=== PATIENT | female | born 2005 | race African-American/Black ===

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

== ENCOUNTER 2024-03-10 08:14 | Emergency (ER) | payer OTHER ==
[2024-03-10] MEDS: ACETAMINOPHEN TAB 325 MG TAB PO STA (08:53)
--- NOTE | 2024-03-10 08:54 | ED ---
General Adult HPI - General Chief complaint: Arrhythmia/Palpitations Stated complaint: High HrtRate Time Seen by Provider: 03/10/24 08:20 Source: patient, RN notes reviewed, old records reviewed Mode of arrival: ambulatory Limitations: no limitations - History of Present Illness Initial comments: 18-year-old female presents for evaluation of palpitations. Patient states that she has had a racing heart and her watch has indicated that her heart rate has been elevated. This has been an ongoing issue in which she is following with her primary care. She also reports that she has been sick for the past several days with upper respiratory symptoms, cough, fever and myalgia. No chest pain. No dyspnea. No lower extremity swelling. She has history of anemia but states that her last hemoglobin was normal. - Related Data Home Medications Medication Instructions Recorded Confirmed Levonorgestrel-Ethinyl Estradiol 1 tab PO DAILY 06/08/23 10/27/23 0.1-20mg-Mcg Ascorbic Acid [Vitamin C chew] 500 mg PO DAILY 10/27/23 10/27/23 Ferrous Sulfate [Feosol] 325 mg PO DAILY 10/27/23 10/27/23 Previous Rx's Medication Instructions Recorded Famotidine [Pepcid] 20 mg PO DAILY 5 Days #5 tablet 10/27/23 Allergies Allergy/AdvReac Type Severity Reaction Status Date / Time sodium ferric gluconate Allergy Severe Rapid Verified 03/10/24 08:17 complex Heart Rate [From Ferrlecit] sucrose [From Ferrlecit] Allergy Severe Rapid Verified 03/10/24 08:17 Heart Rate Review of Systems ROS Statement: Those systems with pertinent positive or pertinent negative responses have been documented in the HPI. ROS Other: All systems not noted in ROS Statement are negative. Past Medical History Past Medical History: Asthma, No Reported History Additional Past Medical History / Comment(s): pt has had workups for recurring headaches. anemia History of Any Multi-Drug Resistant Organisms: None Reported Past Surgical History: No Surgical Hx Reported Past Psychological History: No Psychological Hx Reported Smoking Status: Never smoker Past Alcohol Use History: None Reported Past Drug Use History: None Reported General Exam Limitations: no limitations General appearance: alert, in no apparent distress Head exam: Present: atraumatic, normocephalic Eye exam: Present: normal appearance, PERRL ENT exam: Present: mucous membranes dry Neck exam: Present: normal inspection. Absent: tenderness, meningismus Respiratory exam: Present: normal lung sounds bilaterally. Absent: respiratory distress Cardiovascular Exam: Present: normal rhythm, tachycardia GI/Abdominal exam: Present: soft. Absent: distended, tenderness, guarding Extremities exam: Present: normal inspection, normal capillary refill. 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 sent in by a medical professional or institution (, PA, HONEYCOMB DECAPPER, urgent care, hospital, or longterm...) When possible be specific @ -No Did you speak to anyone other than the patient for history (EMS, parent, family, police, friend...)? What history was obtained from this source @ -No Did you review nursing and triage notes (agree or disagree)? Why? @ -I reviewed and agree with nursing and triage notes Were old charts reviewed (outside hosp., previous admission, EMS record, old EKG, old radiological studies, urgent care reports/EKG's, longterm records)? Report findings @ -No old charts were reviewed Differential Palpitations Ventricular arrhythmias, atrial arrhythmias, myocardial infarction, anemia, thyrotoxicosis, electrolyte imbalance, hypokalemia, pulmonary embolism, pulmonary disease, drugs, alcohol, anxiety, stress.... This is not meant to be an all-inclusive list. EKG interpreted by me (3pts min.). @ -[Sinus tachycardia rate of 120, DC interval 129, QRS duration 77, QTc [address] segment elevation. X-rays interpreted by me (1pt min.). @ -None done CT interpreted by me (1pt min.). @ -None done U/S interpreted by me (1pt. min.). @ -None done What testing was considered but not performed or refused? (CT, X-rays, U/S, labs)? Why? @ -None What meds were considered but not given or refused? Why? @ -None Did you discuss the management of the patient with other professionals (pro fessionals i.e. , PA, HONEYCOMB DECAPPER, lab, RT, psych nurse, social welfare clerk, professor of surgery, teacher, commercial account officer, pillowcase cutter)? Give summary @ -No Was smoking cessation discussed for >3mins.? @ -No Was critical care preformed (if so, how long)? @ -No Were there social determinants of health that impacted care today? How? (Homelessness, low income, unemployed, alcoholism, drug addiction, transportation, low edu. Level, literacy, decrease access to med. care, care home, rehab)? @ -No Was there de-escalation of care discussed even if they declined (Discuss DNR or withdrawal of care, Hospice)? DNR status @ -No What co-morbidities impacted this encounter? (DM, HTN, Smoking, COPD, CAD, Cancer, CVA, ARF, Chemo, Hep., AIDS, mental health diagnosis, sleep apnea, morbid obesity)? @ -None Was patient admitted / discharged? Hospital course, mention meds given and route, prescriptions, significant lab abnormalities, going to OR and other pertinent info. @ -[18-year-old female with cough cold symptoms and racing heart sensation. Patient is tachycardic upon arrival, EKG is at 120. She is otherwise stable. S he has a fever and upper respiratory condition which is testing positive for influenza A. Tachycardia likely a result of fever and viral illness. Patient is not anemic. She has otherwise normal labs. Heart rate improved with Tylenol and IV fluids. Patient instructed on fever control and hydration. Stable for discharge. Undiagnosed new problem with uncertain prognosis? @ -No Drug Therapy requiring intensive monitoring for toxicity (Heparin, Nitro, Insulin, Cardizem)? @ -No Were any procedures done? @ -No Diagnosis/symptom? @ -[Influenza A Acute, or Chronic, or Acute on Chronic? @Acute Uncomplicated (without systemic symptoms) or Complicated (systemic symptoms)? @ -Default Side effects of treatment? @ -No Exacerbation, Progression, or Severe Exacerbation? @ -No Poses a threat to life or bodily function? How? (Chest pain, USA, VT, pneumonia, PE, COPD, DKA, ARF, appy, cholecystitis, CVA, Diverticulitis, Homicidal, Suicidal, threat to staff... and all critical care pts) @ -No - Lab Data Result diagrams: 03/10/24 09:00 03/10/24 09:00 Lab Results 03/10/24 03/10/24 03/10/24 Range/Units 09:00 09:00 09:00 WBC 4.9 (4.0-11.0) k/uL RBC 4.38 (3.80-5.40) m/uL Hgb 12.9 (11.4-16.0) gm/dL Hct 39.6 (34.0-46.0) % MCV 90.4 (80.0-100.0) fL MCH 29.5 (25.0-35.0) pg MCHC 32.7 (31.0-37.0) g/dL RDW 12.9 (11.5-15.5) % Plt Count 187 (150-450) k/uL MPV 7.6 Neutrophils % 83 % Lymphocytes % 10 % Monocytes % 6 % Eosinophils % 0 % Basophils % 0 % Neutrophils # 4.0 (1.3-7.7) k/uL Lymphocytes # 0.5 L (1.0-4.8) k/uL Monocytes # 0.3 (0-1.0) k/uL Eosinophils # 0.0 (0-0.7) k/uL Basophils # 0.0 (0-0.2) k/uL Sodium 140 (137-145) mmol/L Potassium 4.3 (3.5-5.1) mmol/L Chloride 105 (98-107) mmol/L Carbon Dioxide 21 L (22-30) mmol/L Anion Gap 14 mmol/L BUN 8 (7-17) mg/dL Creatinine 0.89 (0.52-1.04) mg/dL Est GFR (CKD-EPI)AfAm >90 (>60 ml/min/1.73 sqM) Est GFR (CKD-EPI)NonAf >90 (>60 ml/min/1.73 sqM) Glucose 90 (74-99) mg/dL Calcium 9.5 (8.4-10.2) mg/dL Total Bilirubin 0.5 (0.2-1.3) mg/dL AST 22 (14-36) U/L ALT 16 (4-34) U/L Alkaline Phosphatase 68 (38-126) U/L Total Protein 8.1 (6.3-8.2) g/dL Albumin 4.9 (3.5-5.0) g/dL Influenza Type A (PCR) Detected A (Not Detectd) Influenza Type B (PCR) Not Detected (Not Detectd) RSV (PCR) Not Detected (Not Detectd) SARS-CoV-2 (PCR) Not Detected (Not Detectd) Disposition Clinical Impression: Palpitations, Influenza A Disposition: HOME SELF-CARE Condition: Fair Instructions (If sedation given, give patient instructions): Heart Palpitations (ED), Influenza (ED) Is patient prescribed a controlled substance at d/c from ED?: No Referrals: None,Stated [REFERRING] - 1-2 days Time of Disposition: 10:10
[2024-03-10] MEDS: SODIUM CHLORIDE 0.9% 1,000 ML IV ONE (09:02)
[2024-03-10 09:17] LABS: Basophils % (A) 0 %; Eosinophils % (A) 0 %; HCT 39.6 % (34.0-46.0); HGB 12.9 gm/dL (11.4-16.0); Lymphocytes # (A) 0.5 k/uL (1.0-4.8); Lymphocytes % (A) 10 %; MCH 29.5 pg (25.0-35.0); MCHC 32.7 g/dL (31.0-37.0); MCV 90.4 fL (80.0-100.0); Mean Platelet Volume 7.6; Monocytes # (A) 0.3 k/uL (0-1.0); Monocytes % (A) 6 %; Neutrophils % (A) 83 %; Platelet Count 187 k/uL (150-450); RBC 4.38 m/uL (3.80-5.40); RDW 12.9 % (11.5-15.5); WBC 4.9 k/uL (4.0-11.0)
[2024-03-10 09:49] LABS: ALT 16 U/L (4-34); AST 22 U/L (14-36); African American GFR (CKD) >90 (>60 ml/min/1.73 sqM); Albumin 4.9 g/dL (3.5-5.0); Alkaline Phosphatase 68 U/L (38-126); Anion Gap 14 mmol/L; Blood Urea Nitrogen 8 mg/dL (7-17); Calcium 9.5 mg/dL (8.4-10.2); Carbon Dioxide 21 mmol/L (22-30); Chloride 105 mmol/L (98-107); Glucose 90 mg/dL (74-99); Non-African American GFR(CKD) >90 (>60 ml/min/1.73 sqM); Potassium 4.3 mmol/L (3.5-5.1); Sodium 140 mmol/L (137-145); Total Bilirubin 0.5 mg/dL (0.2-1.3); Total Protein 8.1 g/dL (6.3-8.2)
[2024-03-10 09:53] LABS: Influenza A Detected (Not Detectd); Influenza B Not Detected (Not Detectd); RSV Not Detected (Not Detectd)
[2024-03-10] MEDS: ONDANSETRON 4 MG/2 ML VIAL IVP STA (10:00)
[2024-03-10 10:11] VITALS: BP 104/63; PULSE 110; RESP 17; TEMP 99.9
[2024-03-10 10:38] LABS: Appearance,Urine Clear (Clear); Bilirubin,Urine Negative (Negative); Blood,Urine Negative (Negative); Color,Urine Yellow; Glucose,Urine (UA) Negative (Negative); Ketones,Urine Negative (Negative); Leukocyte Esterase,Urine Negative (Negative); Nitrite,Urine Negative (Negative); PH, Urine 6.5 (5.0-8.0); Protein,Urine Trace (Negative); Specific Gravity,Urine 1.032 (1.001-1.035)
== END 2024-03-10 10:23 | disposition home or self-care (01) ==
LOC: EC 08:14
DX: R00.2 Palpitations (principal); J10.1 Influenza due to other identified influenza virus with other respiratory manifestations; Z88.8 Allergy status to other drugs, medicaments and biological substances; Z11.52 Encounter for screening for COVID-19
CPT/HCPCS: 36415; 93005; 80053; 85025; 81003; 81025; 87636; 99285; 96374; 96361; J2405

== ENCOUNTER 2024-06-24 15:29 | Emergency (ER) | payer OTHER ==
[2024-06-24 16:07] LABS: Glucose,Whole Blood 108 mg/dL (70-110)
[2024-06-24] MEDS: ONDANSETRON 4 MG/2 ML VIAL IVP STA (16:34)
[2024-06-24] MEDS: FAMOTIDINE 20 MG/2 ML VIAL IV STA (16:35)
[2024-06-24] MEDS: diphenhydrAMINE 50 MG/ML 1 ML VIAL IVP STA (16:35)
--- NOTE | 2024-06-24 16:37 | ED ---
Allergic Reaction HPI - General Chief complaint: Allergic Reaction Stated complaint: rash Time Seen by Provider: 06/24/24 16:02 Source: patient Mode of arrival: ambulatory Limitations: no limitations - History of Present Illness Initial Comments: 18-year-old female who presents to the emergency department after an allergic reaction. Patient was receiving iron infusion. She was pretreated with steroids and Benadryl she has had a previous reaction. Patient states she was able to make it through the infusion to go home. She has started having a rash on her upper extremities, swollen bilateral feet as well as vomiting. This prompted patient to come back to the emergency department she was concern for allergic reaction. Patient is not allergic to anything else. She does feel mildly short of breath. No concern for . No other alleviating, precipitating or modifying factors - Related Data Home Medications Medication Instructions Recorded Confirmed Levonorgestrel-Ethinyl Estradiol 1 tab PO DAILY 06/08/23 06/24/24 0.1-20mg-Mcg Ascorbic Acid [Vitamin C chew] 500 mg PO DAILY 10/27/23 06/24/24 Amoxicillin 250 mg PO BID 06/24/24 06/24/24 Multivit/Iron Sulf/Folic Acid 1 tab PO DAILY 06/24/24 06/24/24 [Multivitamin with Iron] predniSONE 5 mg PO BID 06/24/24 06/24/24 Previous Rx's Medication Instructions Recorded Famotidine [Pepcid] 20 mg PO BID #28 tablet 06/24/24 diphenhydrAMINE [Benadryl] 25 - 50 mg PO Q6HR 3 Days #25 06/24/24 capsule predniSONE [Deltasone] 20 mg PO BID #6 tab 06/24/24 Allergies Allergy/AdvReac Type Severity Reaction Status Date / Time sodium ferric gluconate Allergy Severe Rapid Verified 06/24/24 15:36 complex Heart Rate [From Ferrlecit] sucrose [From Ferrlecit] Allergy Severe Rapid Verified 06/24/24 15:36 Heart Rate Review of Systems ROS Statement: Those systems with pertinent positive or pertinent negative responses have been documented in the HPI. ROS Other: All systems not noted in ROS Statement are negative. Past Medical History Past Medical History: Asthma, Blood Disorder Additional Past Medical History / Comment(s): pt has had workups for recurring headaches. anemia History of Any Multi-Drug Resistant Organisms: None Reported Past Surgical History: No Surgical Hx Reported Past Psychological History: No Psychological Hx Reported Smoking Status: Never smoker General Exam Limitations: no limitations General appearance: alert, in no apparent distress Head exam: Present: atraumatic, normocephalic, normal inspection Eye exam: Present: normal appearance, PERRL, EOMI. Absent: scleral icterus, conjunctival injection, periorbital swelling ENT exam: Present: normal exam, mucous membranes moist Neck exam: Present: normal inspection. Absent: tenderness, meningismus, lymphadenopathy Respiratory exam: Present: normal lung sounds bilaterally. Absent: respiratory distress, wheezes, rales, rhonchi, stridor Cardiovascular Exam: Present: regular rate, normal rhythm, normal heart sounds. Absent: systolic murmur, diastolic murmur, rubs, gallop, clicks GI/Abdominal exam: Present: soft, normal bowel sounds. Absent: distended, tenderness, guarding, rebound, rigid Extremities exam: Present: full ROM, normal capillary refill, pedal edema (b/l feet). Absent: tenderness, joint swelling, calf tenderness Back exam: Present: normal inspection Neurological exam: Present: alert, oriented X3, CN II-XII intact Psychiatric exam: Present: normal affect, normal mood Skin exam: Present: warm, dry, intact, normal color. Absent: rash Course Vital Signs 06/24/24 06/24/24 06/24/24 15:30 15:58 16:01 Temperature 98.3 F Pulse Rate 154 H 112 H Respiratory 18 20 20 Rate Blood Pressure 104/73 104/35 O2 Sat by Pulse 100 96 Oximetry 06/24/24 06/24/24 06/24/24 17:35 18:00 18:45 Temperature 98.6 F Pulse Rate 85 86 81 Respiratory 16 16 16 Rate Blood Pressure 130/60 118/60 100/77 O2 Sat by Pulse 98 98 100 Oximetry Medical Decision Making - Medical Decision Making Was pt. sent in by a medical professional or institution (, PA, PRINCIPAL BIOINFORMATICS SPECIALIST, urgent care, hospital, or group home...) When possible be specific @ -No Did you speak to anyone other than the patient for history (EMS, parent, family, police, friend...)? What history was obtained from this source @ spoke with mother for history Did you review nursing and triage notes (agree or disagree)? Why? @ -I reviewed and agree with nursing and triage notes Were old charts reviewed (outside hosp., previous admission, EMS record, old EKG, old radiological studies, urgent care reports/EKG's, group home records)? Report findings @ -I reviewed the MAR from the infusion center today. States patient was given iron infusion, fluids, steroids and Benadryl Differential Diagnosis (chest pain, altered mental status, abdominal pain women, abdominal pain men, vaginal bleeding, weakness, fever, dyspnea, syncope, headache, dizziness, GI bleed, back pain, seizure, CVA, palpatations, mental health, musculoskeletal)? @ -Allergic reaction, lymphedema EKG interpreted by me (3pts min.). @ -Yes and demonstrates sinus rhythm with a rate of 89. VT interval 120. QRS 84. QTc of 386. No acute ST segment elevations or depressions X-rays interpreted by me (1pt min.). @ -Yes which demonstrates no acute process CT interpreted by me (1pt min.). @ -None done U/S interpreted by me (1pt. min.). @ -None done What testing was considered but not performed or refused? (CT, X-rays, U/S, labs)? Why? @ -None What meds were considered but not given or refused? Why? @ -Additional steroids and fluids were considered however the patient does have peripheral edema Did you discuss the management of the patient with other professionals (professionals i.e. , PA, PRINCIPAL BIOINFORMATICS SPECIALIST, lab, RT, psych nurse, sr. social media & mobile manager, level glass vial filler, teacher, chief commercial officer, pillowcase cutter)? Give summary @ -No Was smoking cessation discussed for >3mins.? @ -No Was critical care preformed (if so, how long)? @ -No Were there social determinants of health that impacted care today? How? (Homelessness, low income, unemployed, alcoholism, drug addiction, transportation, low edu. Level, literacy, decrease access to med. care, long-term, rehab)? @ -No Was there de-escalation of care discussed even if they declined (Discuss DNR or withdrawal of care, Hospice)? DNR status @ -No What co-morbidities impacted this encounter? (DM, HTN, Smoking, COPD, CAD, Cancer, CVA, ARF, Chemo, Hep., AIDS, mental health diagnosis, sleep apnea, morbid obesity)? @ -None Was patient admitted / discharged? Hospital course, mention meds given and route, prescriptions, significant lab abnormalities, going to OR and other pertinent info. @ -Discharged. Patient watched for several hours. Rash has resolved. Patient still has some edema in her lower extremities. She was given additional Benadryl and Pepcid. She will be placed on Benadryl, Pepcid and steroids in the outpatient setting. Instructed to watch her swelling after she is administered steroids to see if the steroids are contributing to her swelling. Follow-up with her workforce manager to discuss iron infusions return for any new or worsening symptoms Undiagnosed new problem with uncertain prognosis? @ -No Drug Therapy requiring intensive monitoring for toxicity (Heparin, Nitro, Insulin, Cardizem)? @ -No Were any procedures done? @ -No Diagnosis/symptom? @ -Acute allergic reaction Acute, or Chronic, or Acute on Chronic? @ -Acute Uncomplicated (without systemic symptoms) or Complicated (systemic symptoms)? @ -Complicated Side effects of treatment? @ -No Exacerbation, Progression, or Severe Exacerbation? @ -No Poses a threat to life or bodily function? How? (Chest pain, [place], [place], pneumonia, PE, COPD, DKA, ARF, appy, cholecystitis, CVA, Diverticulitis, Homicidal, Suicidal, threat to staff... and all critical care pts) @ -No - Lab Data Lab Results 06/24/24 Range/Units 16:03 POC Glucose (mg/dL) 108 (70-110) mg/dL POC Glu Hand Cementer ID Miguel Bass Disposition Clinical Impression: Allergic reaction Disposition: HOME SELF-CARE Condition: Stable Instructions (If sedation given, give patient instructions): General Allergic Reaction (ED) Additional Instructions: You may take Benadryl 25 mg in 3 hours from now. Start the steroids and Pepcid tomorrow. You will take all three of these medications for the next 3 days. Monitor your swelling with the steroid use. Return for any new or worsening symptoms. Talk to your doctor about changing your infusion again Prescriptions: diphenhydrAMINE [Benadryl] 25 - 50 mg PO Q6HR 3 Days #25 capsule predniSONE [Deltasone] 20 mg PO BID #6 tab Famotidine [Pepcid] 20 mg PO BID #28 tablet Is patient prescribed a controlled substance at d/c from ED?: No Referrals: Az Sagastume MD [Primary Care Provider] - 1-2 days Time of Disposition: 18:40
--- NOTE | 2024-06-24 16:53 | XR ---
EXAMINATION TYPE: XR chest 2V DATE OF EXAM: 06/24/2024 4:47 PM COMPARISON: Multiple chest radiograph, most recently dated 10/27/2023. CLINICAL INDICATION: Female, 18 years old with history of shortness of breath; [facility] TECHNIQUE: XR chest 2V Frontal and lateral views of the chest. FINDINGS: Lungs/Pleura: There is no evidence of pleural effusion, focal consolidation, or pneumothorax. Pulmonary vascularity: Unremarkable. Heart/mediastinum: Cardiomediastinal silhouette is unremarkable. Musculoskeletal: No acute osseous pathology. Other findings: None IMPRESSION: No acute cardiopulmonary disease/process. [facility], , 06/24/2024 4:51 PM
[2024-06-24 18:17] VITALS: RESP 16
[2024-06-24 18:56] VITALS: BP 100/77; PULSE 81; TEMP 98.6
== END 2024-06-24 18:50 | disposition home or self-care (01) ==
LOC: EC 15:29
DX: R21 Rash and other nonspecific skin eruption (principal); T38.0X5A Adverse effect of glucocorticoids and synthetic analogues, initial encounter; Z88.8 Allergy status to other drugs, medicaments and biological substances
CPT/HCPCS: 36415; 71046; 99283; 96374; 96375 ×2; J1200; J2405; J1308